=== PATIENT | female | born 1955 | race Caucasian/White ===

== ENCOUNTER → 2016-12-05 | Outpatient (CLI) | payer OTHER ==
[~2016-12-05] MED LIST: ACYC-114 PO; ACYC-57 PO; ALBU8.5H3 INH; AREDIA IV; ARIDIA IV; ATIVAN PO; AZIT1PAC PO; BORT3.5V SC; FLUT16SP2 NAS; HYDR-3138 PO; LEVO125T PO; LORA-446 PO; OMEP-110 PO; OMEPRAZOLE PO; ONDA4TAB10 PO; OXYC-302 PO; SENN1TAB35 PO; TAMO20TA PO; [UNRECOGNIZED DRUG - OTHER] SQ
== END | disposition home or self-care (01) ==
LOC: CARD 09:20
PROVIDERS: ATTEND Internal Medicine
DX: R94.39 Abnormal result of other cardiovascular function study (principal); R07.89 Other chest pain; C90.00 Multiple myeloma not having achieved remission
CPT/HCPCS: 93017

== ENCOUNTER → 2017-05-15 | Outpatient (CLI) | payer OTHER ==
[~2017-05-15] MED LIST changes: -ALBU8.5H3 INH; +ALBU8.5H8 INH; -HYDR-3138 PO; +HYDR-3237 PO
== END | disposition home or self-care (01) ==
LOC: CFH 13:14
PROVIDERS: ATTEND Family Medicine
DX: J01.90 Acute sinusitis, unspecified (principal)
CPT/HCPCS: 71046

== ENCOUNTER → 2017-06-20 | Outpatient (CLI) | payer OTHER ==
[~2017-06-20] MED LIST changes: +OMNIPAQUE 350 MG/ML, 75ML BOTTLE ONE
== END ==
LOC: RAD 12:25
PROVIDERS: ATTEND Family Medicine
DX: K76.89 Other specified diseases of liver (principal); J20.9 Acute bronchitis, unspecified; C90.00 Multiple myeloma not having achieved remission
CPT/HCPCS: 71260; J1642; Q9967

== ENCOUNTER → 2017-07-03 | Outpatient (CLI) | payer OTHER ==
[~2017-07-03] MED LIST changes: +LIDOCAINE 1%, 20ML ONE; -OMNIPAQUE 350 MG/ML, 75ML BOTTLE ONE
== END | disposition home or self-care (01) ==
LOC: CFH 07:43
PROVIDERS: ATTEND Internal Medicine
DX: N60.02 Solitary cyst of left breast (principal); K76.89 Other specified diseases of liver; D73.89 Other diseases of spleen; C90.00 Multiple myeloma not having achieved remission; Z85.3 Personal history of malignant neoplasm of breast; Z90.13 Acquired absence of bilateral breasts and nipples
CPT/HCPCS: 19083; 76641; 76700; 88305; J3490

== ENCOUNTER → 2017-09-07 | Outpatient (CLI) | payer OTHER ==
[~2017-09-07] MED LIST changes: +ESOM20CA PO; -LIDOCAINE 1%, 20ML ONE
== END | disposition home or self-care (01) ==
LOC: STAR 10:10
PROVIDERS: ATTEND Otolaryngology
DX: Z01.818 Encounter for other preprocedural examination (principal); J01.01 Acute recurrent maxillary sinusitis; J33.8 Other polyp of sinus
CPT/HCPCS: 93005

== ENCOUNTER 2017-09-12 10:22 | Day surgery (SDC) | payer OTHER ==
[~2017-09-12] VITALS: Ht 165.1 cm; Wt 59.0 kg
[~2017-09-12 10:22] MED LIST changes: +BACITRACIN OINT 500U/GM, 15 GM ONE; +EPINEPHRINE TOPICAL SOLN 1 MG/ML, 30ML ONE; +FLUORESCEIN OPHTHALMIC 1 MG STRIP ONE; +LIDOCAINE-MPF 1%, 5ML ONE; +OXYMETAZOLINE NASAL SPRAY 0.05%, 15ML ONE
[2017-09-12 11:00] VITALS: BP 138/79
[2017-09-12] MEDS ORDERED: LACTATED RINGERS 1,000 ML IV SCH (11:04)
[2017-09-12] MEDS ORDERED: FENTANYL PF 100 MCG/2ML ONE (11:04)
[2017-09-12] MEDS ORDERED: MIDAZOLAM 1 MG/ML, 2ML ONE (11:04)
[2017-09-12] MEDS ORDERED: SUCCINYLCHOLINE 20 MG/ML, 10ML ONE (12:55)
[2017-09-12] MEDS ORDERED: DEXAMETHASONE 4 MG/ML, 1ML ONE (12:55)
[2017-09-12] MEDS ORDERED: PROPOFOL 10 MG/ML, 20ML ONE (12:55)
[2017-09-12] MEDS ORDERED: METOCLOPRAMIDE 5 MG/ML, 2ML ONE (12:55)
[2017-09-12] MEDS ORDERED: ROCURONIUM 10 MG/ML,10ML ONE (12:55)
[2017-09-12] MEDS ORDERED: CEFAZOLIN 1,000 MG ONE (12:55)
[2017-09-12] MEDS ORDERED: LIDOCAINE 1%, 20ML INFIL ONE (13:40)
[2017-09-12] MEDS ORDERED: EPINEPHRINE 1 MG/ML, 1ML INFIL ONE (13:41)
[2017-09-12] MEDS ORDERED: ALBUTEROL SULFATE 2.5 MG/3 ML NPPB PRN (14:00)
[2017-09-12] MEDS ORDERED: KETOROLAC 30 MG/1 ML IV PRN (14:00)
[2017-09-12] MEDS ORDERED: ONDANSETRON 2MG/ML, 2ML IVPush PRN (14:00)
[2017-09-12] MEDS ORDERED: PROMETHAZINE 25 MG/ML, 1ML IV PRN (14:00)
[2017-09-12] MEDS ORDERED: MEPERIDINE/PF 25MG/0.5ML IVPush PRN (14:00)
[2017-09-12] MEDS ORDERED: FENTANYL PF 100 MCG/2ML IV PRN (14:00)
[2017-09-12] MEDS ORDERED: LABETALOL 5MG/ML, 20ML IV PRN (14:00)
[2017-09-12] MEDS ORDERED: HYDROmorphone 1 MG/ML, 1ML IV PRN (14:00)
[2017-09-12] MEDS ORDERED: hydrALAzine 20 MG/ML, 1ML IV PRN (14:00)
[2017-09-12] MEDS ORDERED: OXYcodone 5 MG/5 ML ORAL.SOL UDC PO PRN (14:00)
[2017-09-12] MEDS ORDERED: METOCLOPRAMIDE 5 MG/ML, 2ML IV PRN (14:00)
[2017-09-12] MEDS ORDERED: EPINEPHRINE 1 MG/ML, 1ML ONE ×2 (14:54→16:33)
== END 2017-09-12 16:15 ==
LOC: OUT 10:22
PROVIDERS: ATTEND Otolaryngology
DX: J34.2 Deviated nasal septum (principal); J33.8 Other polyp of sinus; J01.01 Acute recurrent maxillary sinusitis; J32.9 Chronic sinusitis, unspecified; C90.00 Multiple myeloma not having achieved remission; J45.909 Unspecified asthma, uncomplicated; Z87.39 Personal history of other diseases of the musculoskeletal system and connective tissue; Z98.890 Other specified postprocedural states
CPT/HCPCS: 30520; 31255; 31256; 61782; 87070; 87075; 87077; 87205; 88304; 88311; J0171; J0330; J0690; J1100; J2250; J2704; J2765; J3010; J3490; J7120

== ENCOUNTER → 2018-07-10 | Outpatient (CLI) | payer OTHER ==
[~2018-07-10] MED LIST changes: -BACITRACIN OINT 500U/GM, 15 GM ONE; -EPINEPHRINE TOPICAL SOLN 1 MG/ML, 30ML ONE; -FLUORESCEIN OPHTHALMIC 1 MG STRIP ONE; -LIDOCAINE-MPF 1%, 5ML ONE; -OXYMETAZOLINE NASAL SPRAY 0.05%, 15ML ONE
== END | disposition home or self-care (01) ==
LOC: CFH 09:04
PROVIDERS: ATTEND Family Medicine
DX: M85.88 Other specified disorders of bone density and structure, other site (principal); C90.00 Multiple myeloma not having achieved remission; Z78.0 Asymptomatic menopausal state
CPT/HCPCS: 77080